=== PATIENT | female | born 1970 | race Caucasian/White ===

== ENCOUNTER → 2019-07-30 | Outpatient (CLI) | payer BC, SELFPAY ==
--- NOTE | 2019-07-30 13:37 | EEG ---
- Electroencephalogram Date of service 07/30/2019 History EEG is being done in this 49 yr F to rule out seizures EEG Description: This is an 18 channel EEG with 10-20 lead placement system. Bipolar montages, and referential montages were reviewed. Photic stimulation and Hyperventilation were performed. The posterior dominant rhythm is 11 HZ synchronous, symmetric, reacting to eye opening and closing. Photo stimulation elicited normal driving response but no abnormal photoparoxysmal response, Hyperventilation did not elicit any abnormal photoparoxysmal response. Sleep was identified. There is no abnormal background slowing noted. There was no epileptiform discharges or electrographic seizures noted during this recording. EKG artefact was noted during the record EEG Interpretation This is a normal awake and asleep EEG. There is no epileptiform discharges or electrographic seizures noted during the record
== END | disposition home or self-care (01) ==
LOC: PSN 08:54
PROVIDERS: Family Provider Internal Medicine; PCP Internal Medicine; Referring Provider Internal Medicine; Visit Provider Internal Medicine
DX: R56.9 Unspecified convulsions (principal)
CPT/HCPCS: 95819

== ENCOUNTER 2023-01-21 21:43 | Emergency (ER) | payer OTHER, SELFPAY ==
[2023-01-21 21:43] VITALS: BP 185/91; PULSE 66; RESP 18; TEMP 35.7; O2SAT 100; BMI 39.2
--- NOTE | 2023-01-21 21:55 | EKG12_ITS ---
Test Reason : CP Blood Pressure : / mmHG Vent. Rate : 073 BPM Atrial Rate : 073 BPM P-R Int : 116 ms QRS Dur : 078 ms QT Int : 402 ms P-R-T Axes : 000 000 -03 degrees QTc Int : 442 ms Normal sinus rhythm with sinus arrhythmia Nonspecific ST abnormality Abnormal ECG Confirmed by MATTHEW PORTER, AMINA ([id number]), school photograph editor JIM SHOEMAKER ([id number]) on 01/24/2023 12:29:54 P M Referred By: LONA Confirmed By:JERSON CASTRO MD
[2023-01-21 21:59] VITALS: PULSE 63; RESP 16
--- NOTE | 2023-01-21 22:01 | RAD_ITS ---
INDICATION: chest pain EXAMINATION/TECHNIQUE: X-RAY - XR Chest 1 View COMPARISON: No previous relevant examinations available for comparison.. FINDINGS: LIFE-SUPPORT AND LINES: 1. None HEART AND VESSELS: The cardiac silhouette, pulmonary vasculature have normal appearance. No evidence of congestive failure. LUNGS AND PLEURAL SPACES: Lungs are clear. No focal infiltrate, consolidation or effusions. No evidence of pneumothorax. No pulmonary mass is noted. MEDIASTINUM AND HILAR REGIONS: No masses adenopathy noted. No areas of calcification. Visualized upper airway is normal in position. BONY ELEMENTS: No acute bony changes noted. RAD/Chest 1 View (Portable) IMPRESSION: 1. No evidence of acute cardiopulmonary process Electronically Signed: Juan Pablo Kothari MD at 22:23 EDT ,
[2023-01-21 22:04] LABS: Absolute Lymphocyte Count 2.52 X10^3/uL (0.83-4.51); Absolute Neutrophil Count 4.3 X10^3/uL (2.0-7.7); Basophil# 0.08 X10^3/uL; Eosinophil# 0.21 X10^3/uL; Eosinophils% 2.7 % (0-5); Hematocrit 45.3 % (37-47); Hemoglobin 14.9 g/dL (12.0-15.0); Lymphocyte # 2.52 X10^3/ul (0.83-4.51); Lymphocyte % 32.5 % (19-41); Mean Corp Hgb Conc 32.9 g/dL (32-36); Mean Corpuscular Hgb 29.8 pg (27.0-32.0); Mean Corpuscular Volume 90.6 fL (81-99); Mean Platelet Vol. 9.6 fl (6.2-12.0); Monocyte# 0.58 X10^3/uL; Monocyte% 7.5 % (0-10); NRBC Flagged by Analyzer 0 % (0-5); Neutrophil # 4.33 X10^3/uL (2.7-7.7); Neutrophil % 55.9 % (47-70); Platelet Count 236 K/mm3 (150-450); RBC Distribution Width CV 13.1 % (11.6-14.6); RBC Distribution Width SD 43.1 fl (35.1-43.9); White Blood Count 7.8 K/mm3 (4.4-11.0)
--- NOTE | 2023-01-21 22:18 | ED.VIS.CHEST ---
HPI History of Present Illness Chief Complaint: Chest Pain Narrative Narrative: 52-year-old female presenting with left-sided chest pain. Patient has radiated to the scapula. Patient states the pain started when she woke up at 4:30 AM this morning. Is been present all day. She went to work and was able to finish her shift. She came home and after dinner she laid down and noted that her chest pain got worse. She has not any shortness of breath. No fevers, chills, coughing. No sharp pleuritic pain. No pain with deep inspiration. She does note its worse when she leans forward to pick stuff up. Denies cardiac history. She states she does have a history of epilepsy. She has not had any breakthrough seizures. Patient denies trying Tylenol or ibuprofen prior to coming. She states she does not taking anything for pain. No weakness, lightheadedness. PFSH PFSH Home Medications oxycodone-acetaminophen 5 mg-325 mg tablet 1 - 2 tab PO Q6H PRN PRN Pain ##20 01/08/17 [Rx Last Taken Unknown] tamsulosin 0.4 mg capsule 0.4 mg PO DAILY 5 days 01/08/17 [Rx Last Taken Unknown] Allergy/AdvReac Type Severity Reaction Status Date / Time No Known Allergies Allergy Verified 01/21/23 21:45 Social History Smoking Status: Never smoker ROS ROS ED Constitutional Constitutional ED: Denies chills, fever(s) or sweats Eyes Eyes: Denies blurry vision or change in vision ENT ENT ED: Denies ear pain or sore throat Cardiovascular Cardiovascular: Reports chest pain; Denies palpitations or racing heartbeat Respiratory/Chest Respiratory/Chest: Denies cough, dyspnea or sputum Gastrointestinal Gastrointestinal: Denies abdominal pain, constipation, diarrhea, nausea or vomiting Genitourinary Genitourinary ED: Denies dysuria, hematuria or urinary frequency Musculoskeletal Musculoskeletal: Denies arthralgias, myalgias or neck pain Integumentary Denies abscess, Abrasions or rash Neurologic Neurologic: Denies headache(s), paresthesias or weakness Psychiatric Psychiatric: Denies anxiety, depression, suicidal ideation or suicidal thoughts Endocrine Endocrinology: Denies polydipsia or polyuria EXAM Physical Exam Const Vital Signs: 01/21/23 21:43 01/21/23 21:59 01/21/23 21:59 Temperature 96.2 F L Temperature Source Temporal Pulse Rate 66 63 Respiratory Rate 18 16 Blood Pressure 185/91 H Blood Pressure Mean 122 Pulse Ox 100 Oxygen Delivery Method Room Air Room Air Heart Score History: Slightly/Non-Suspicious ECG: Normal Age: >45 - <65 years Risk Factors: 1 or 2 Risk Factors Score: 2 MDM MDM MDM Narrative Medical decision making narrative: 52-year-old female presenting with chest pain. She declines any analgesia. Differential includes but is not limited to ACS, PE, pneumonia, pneumothorax, muscle strain, costochondritis. I have a low suspicion for ACS but I did obtain an EKG which on my interpretation shows a normal sinus rhythm with a ventricular rate of 73 bpm without sign of ischemic change or dysrhythmia. Chest x-ray was obtained and does not show any evidence of pneumonia, pneumothorax. There is no other acute process on my interpretation. Patient PERC negative so PE unlikely. High-sensitivity troponin is 7 after chest pain all day long. I do not believe she needs a delta troponin. Patient's work-up ultimately negative. Counseled on findings. She is given return precautions. I recommend she follow-up with her PCP on an outpatient basis. Impression: 1. Chest Lab Data Labs: Laboratory Results - last 24 hr 01/21/23 01/21/23 22:00 22:00 WBC 7.8 RBC 5.00 Hgb 14.9 Hct 45.3 MCV 90.6 MCH 29.8 MCHC 32.9 RDW Std Deviation 43.1 RDW Coeff of Barbara 13.1 Plt Count 236 MPV 9.6 Immature Gran % (Auto) 0.400 Neut % (Auto) 55.9 Lymph % (Auto) 32.5 [place] % (Auto) 7.5 Eos % (Auto) 2.7 Baso % (Auto) 1.0 Absolute Neuts (auto) 4.3 Absolute Lymphs (auto) 2.52 Nucleated RBC % 0 Sodium 143 Potassium 4.0 Chloride 111 H Carbon Dioxide 26.0 Anion Gap 6 BUN 16 Creatinine 0.92 Estim Creat Clear Calc 52.55 Est GFR (MDRD) Af Amer 83 Est GFR (MDRD) Non-Af 68 BUN/Creatinine Ratio 17.4 Glucose 100 Calcium 10.1 Troponin I High Sens 7 Radiography Diagnostic Testing: Clinical Impression(s) from Imaging Studies Chest X-Ray 01/21/23 22:01 IMPRESSION: 1. No evidence of acute cardiopulmonary process Electronically Signed: Juan Pablo Kothari MD at 22:23 EDT , Discharge Plan Triage Chief Complaint: Chest Pain ED Provider: Rogers Lozoya Dx/Rx/DC Orders Instructions: ED Chest Pain, Noncardiac Prescriptions: No Action oxycodone-acetaminophen 1 TABLET tablet 1 - 2 tab PO Q6H PRN PRN (Reason: Pain) Qty: 20 0RF tamsulosin 0.4 MG capsule 0.4 mg PO DAILY 5 Days 0RF Primary Care Provider: Lena Crabtree Referrals: Lena Crabtree MD [Primary Care Provider] - Disposition Disposition: Home, Self Care
[2023-01-21 22:20] LABS: Anion Gap 6 (5-15); BUN 16 mg/dL (7-18); BUN/Creat Ratio 17.4 RATIO (10-20); Calcium,Total 10.1 mg/dL (8.5-10.1); Chloride 111 mmol/L (98-107); Creatinine, Serum 0.92 mg/dL (0.55-1.02); EST Glomerular Filtration Rate 68 mL/min (>60); Est Glom Filt Rate - Afr Amer 83 mL/min (>60); Estimated Creatinine Clearance 52.55 ml/min; Glucose 100 mg/dL (74-106); Sodium Level 143 mmol/L (136-145); Troponin-I HS 7 pg/mL (3.0-54.0)
[2023-01-21 23:25] VITALS: BP 170/90; PULSE 71; RESP 16; O2SAT 96
== END 2023-01-21 23:26 | disposition home or self-care (01) ==
PROVIDERS: Emergency Provider Student in an Organized Health Care Education/Training Program; PCP Internal Medicine; Visit Provider Student in an Organized Health Care Education/Training Program
DX: R07.9 Chest pain, unspecified (principal)
CPT/HCPCS: 71045; 80048; 84484; 85025; 93005; 99284

== ENCOUNTER 2023-10-23 17:03 | Emergency (ER) | payer OTHER, SELFPAY ==
[2023-10-23 17:03] VITALS: BP 181/102; PULSE 63; RESP 17; TEMP 36.7; O2SAT 98; BMI 34.9
[2023-10-23 17:46] LABS: Mucous, Urine 0 SEEN /hpf (<or=2+)
[2023-10-23 17:51] LABS: Color, Urine Yellow (Yellow); Glucose, Dipstick Normal (Normal); Ketone-Dipstick 50 mg/dl (Negative); Leukocyte Esterase-Dipstick 25 /ul (Negative); Nitrite-Dipstick Negative (Negative); Occult Blood-Urine 150 /ul (Negative); Protein-Dipstick 15 mg/dl (Negative); Urine Bilirubin Dipstick Negative (Negative); Urine Clarity Sl. Cloudy (Clear); Urine Urobilinogen Normal (Normal)
[2023-10-23 18:05] LABS: White Blood Cells 5-10 SEEN /hpf (0-5)
[2023-10-23 18:06] LABS: Amorphous Sediment 1+ PHOS; Bacteria RARE /hpf (None Seen); Red Blood Cells-Urine 25-50 SEEN /hpf (0-5); Squamous Epithelial Cells - UA 0-5 SEEN /hpf (5-10)
--- NOTE | 2023-10-23 19:43 | CT_ITS ---
INDICATION: R flank pain EXAMINATION: CT ABDOMEN AND PELVIS WITHOUT CONTRAST - CT Abdomen And Pelvis W/O Contrast Injection TECHNIQUE: Helically acquired images were obtained of the abdomen and pelvis without oral or IV contrast. A radiation dose optimization technique was used for this scan. IV Contrast dosage and agent: None. Oral contrast: None. COMPARISON: 01/08/2017 FINDINGS: LOWER CHEST: Lung bases are clear. No cardiomegaly or pericardial effusion. LIVER: Homogeneous. No focal mass. GALLBLADDER AND BILIARY TREE: Cholecystectomy. No intra- or extrahepatic biliary ductal dilation. PANCREAS: No focal cystic or solid mass. SPLEEN: Normal size without focal cystic or solid mass. ADRENAL GLANDS: No nodules. KIDNEYS AND URETERS: Nonobstructing bilateral nephrolithiasis. Right hydroureteronephrosis with right perinephric stranding. No right ureteral calculus. 5 mm calculus in the bladder lumen near the right ureteral orifice. PERITONEUM: No ascites or free air. BOWEL: Normal appendix. No stomach or bowel distension. No focal inflammatory change. LYMPH NODES: No enlarged mesenteric or retroperitoneal lymph nodes. VESSELS: Aorta is non-dilated. URINARY BLADDER: 5 mm calculus in the bladder lumen near the right ureteral orifice. REPRODUCTIVE ORGANS: No pelvic masses. ABDOMINAL WALL: No discrete abdominal or pelvic wall hernia. BONES: No acute or aggressive abnormality. CT/Abdomen/Pelvis without Cont IMPRESSION: Findings consistent with recent passage of 5 mm right ureteral calculus into the bladder lumen. Electronically Signed: Mook Callejas MD at 20:43 EST ,
[2023-10-23] MEDS: 0.9% Normal Saline (1000mL) 1,000 ML 999 ML IV (19:45)
--- NOTE | 2023-10-23 19:45 | EX.ED.DYSGE1 ---
HPI <DIANE Hanson - Last Filed: 10/23/23 21:06> History of Present Illness Chief Complaint: Abd Pain Narrative Narrative: Patient presenting today with concerns that she has a kidney stone. She reports that she developed right-sided flank pain that radiates into her right lower quadrant of her abdomen that started this morning. She reports that the pain is waxing and waning and is sharp. She has a history of kidney stones and thinks that this feels similar. She has had increased urinary frequency. She reports that when the pain becomes severe she becomes nauseous and has had a few episodes of vomiting. She has also noticed a few episodes of loose stools today. Previous abdominal surgeries include section, cholecystectomy, and hysterectomy. She denies any fever and chills. PFSH <DIANE Hanson - Last Filed: 10/23/23 21:06> PFSH Home Medications zonisamide 100 mg capsule 400 mg PO QHS 10/23/23 [History Last Taken Unknown] Allergy/AdvReac Type Severity Reaction Status Date / Time acetaminophen [From Tylenol] Allergy Other Verified 10/23/23 17:03 Social History Smoking Status: Current some day smoker tobacco type: e-cigarettes ROS <DIANE Hanson - Last Filed: 10/23/23 21:06> ROS ED Constitutional Constitutional ED: Denies chills or fever(s) Cardiovascular Cardiovascular: Denies chest pain Respiratory/Chest Respiratory/Chest: Denies cough or dyspnea Gastrointestinal Gastrointestinal: Reports abdominal pain; Denies nausea or vomiting Genitourinary Genitourinary ED: Reports urinary frequency and urinary urgency; Denies dysuria or hematuria Musculoskeletal Musculoskeletal: Reports back pain Integumentary Denies rash Neurologic Neurologic: Denies paresthesias or weakness EXAM <DIANE Hanson - Last Filed: 10/23/23 21:06> Physical Exam Const Vital Signs: 10/23/23 17:03 10/23/23 19:51 10/23/23 21:00 Temperature 98.1 F Temperature Source Temporal Pulse Rate 63 58 L 59 L Respiratory Rate 17 20 H 18 Blood Pressure 181/102 H 185/104 H 161/88 H Blood Pressure Mean 128 131 112 Pulse Ox 98 98 96 Oxygen Delivery Method Room Air Room Air Room Air 10/23/23 21:15 Temperature Temperature Source Pulse Rate 61 Respiratory Rate 15 Blood Pressure Blood Pressure Mean Pulse Ox 98 Oxygen Delivery Method Positive well nourished, well developed and no apparent distress General Appearance ED: well developed HEENT Reports normocephalic and head/scalp atraumatic Mouth ED: Yes moist mucous membranes normal Eyes PERRL and EOMs intact bilaterally Neck full ROM and supple Chest Wall inspection of chest normal Resp normal respiratory effort and clear to auscultation bilaterally Cardio regular rate and regular rhythm GI soft to palpation, non-tender, non-distended and no masses Back/Spine normal ROM and normal to inspection General Back: CVA tenderness right Extremity normal to inspection and full ROM Neuro oriented x3, CN's II-XII intact bilaterally, moves all extremities, no focal motor deficits and no sensory deficits noted Sensorium / Orientation: awake and alert Psych mental status grossly normal and thought process normal Skin no rashes or lesions noted and no wounds <Dr. Brandt Anthony DO - Last Filed: 10/23/23 22:45> Physical Exam Const Vital Signs: 10/23/23 17:03 10/23/23 19:51 10/23/23 21:00 Temperature 98.1 F Temperature Source Temporal Pulse Rate 63 58 L 59 L Respiratory Rate 17 20 H 18 Blood Pressure 181/102 H 185/104 H 161/88 H Blood Pressure Mean 128 131 112 Pulse Ox 98 98 96 Oxygen Delivery Method Room Air Room Air Room Air 10/23/23 21:15 Temperature Temperature Source Pulse Rate 61 Respiratory Rate 15 Blood Pressure Blood Pressure Mean Pulse Ox 98 Oxygen Delivery Method [facility] <DIANE Hanson - Last Filed: 10/23/23 21:06> [facility] Narrative Medical decision making narrative: Patient presenting with right-sided flank pain that started today. She is concerned that she could have a kidney stone as her symptoms are similar to her previous stone. She has right CVA tenderness, no abdominal tenderness on exam. UA obtained in triage and does show red blood cells. Labs will be obtained to rule out leukocytosis, anemia, electrolyte abnormality, YOLI, and UTI. CT of the abdomen and pelvis will be obtained to rule out kidney stone, appendicitis, diverticulitis, and other abdominal etiology. Patient will be given IV fluids, morphine, Toradol, and Zofran. CT scan shows a 5 mm stone in the bladder. Bilateral nonobstructing stones in the kidneys. On reexamination she reports improvement of her symptoms. Blood pressure is improved at 161/88. She will be discharged home in stable condition and is comfortable with plan. She is to follow-up with her PCP. Lab Data Attestation: I reviewed the patient's lab results. Lab results narrative: WBC 11.1, creatinine 1.17 Labs: Laboratory Results - last 24 hr 10/23/23 10/23/23 17:37 19:37 WBC 11.1 H RBC 5.00 Hgb 15.1 H Hct 43.8 MCV 87.6 MCH 30.2 MCHC 34.5 RDW Std Deviation 41.0 RDW Coeff of Barbara 12.7 Plt Count 229 MPV 9.9 Immature Gran % (Auto) 0.500 Neut % (Auto) 93.0 H Lymph % (Auto) 4.9 L [place] % (Auto) 1.4 Eos % (Auto) 0.0 Baso % (Auto) 0.2 Absolute Neuts (auto) 10.3 H Absolute Lymphs (auto) 0.54 L Nucleated RBC % 0 Differential Comment SCANNED Sodium 142 Potassium 3.6 Chloride 114 H Carbon Dioxide 23.0 Anion Gap 5 BUN 14 Creatinine 1.17 H Estim Creat Clear Calc 40.86 Est GFR (MDRD) Af Amer 63 Est GFR (MDRD) Non-Af 52 L BUN/Creatinine Ratio 12.0 Glucose 145 H Calcium 10.0 Urine Color Yellow Urine Clarity Sl. Cloudy Urine pH 7.0 Ur Specific [place] 1.010 Urine Protein 15 H Urine Glucose (UA) Normal Urine Ketones 50 H Urine Occult Blood 150 H Urine Nitrite Negative Urine Bilirubin Negative Urine Urobilinogen Normal Ur Leukocyte Esterase 25 H Urine RBC 25-50 SEEN Urine WBC 5-10 SEEN Ur Squamous Epith Cells 0-5 SEEN Amorphous Sediment 1+ PHOS Urine Bacteria RARE Urine Mucus 0 SEEN Radiography Diagnostic Testing: Clinical Impression(s) from Imaging Studies Abdomen/Pelvis CT 10/23/23 19:43 IMPRESSION: Findings consistent with recent passage of 5 mm right ureteral calculus into the bladder lumen. Electronically Signed: Mook Callejas MD at 20:43 EST , <Dr. Brandt Anthony, DO - Last Filed: 10/23/23 22:45> [facility] Lab Data Labs: Laboratory Results - last 24 hr 10/23/23 10/23/23 17:37 19:37 WBC 11.1 H RBC 5.00 Hgb 15.1 H Hct 43.8 MCV 87.6 MCH 30.2 MCHC 34.5 RDW Std Deviation 41.0 RDW Coeff of Barbara 12.7 Plt Count 229 MPV 9.9 Immature Gran % (Auto) 0.500 Neut % (Auto) 93.0 H Lymph % (Auto) 4.9 L [place] % (Auto) 1.4 Eos % (Auto) 0.0 Baso % (Auto) 0.2 Absolute Neuts (auto) 10.3 H Absolute Lymphs (auto) 0.54 L Nucleated RBC % 0 Differential Comment SCANNED Sodium 142 Potassium 3.6 Chloride 114 H Carbon Dioxide 23.0 Anion Gap 5 BUN 14 Creatinine 1.17 H Estim Creat Clear Calc 40.86 Est GFR (MDRD) Af Amer 63 Est GFR (MDRD) Non-Af 52 L BUN/Creatinine Ratio 12.0 Glucose 145 H Calcium 10.0 Urine Color Yellow Urine Clarity Sl. Cloudy Urine pH 7.0 Ur Specific [place] 1.010 Urine Protein 15 H Urine Glucose (UA) Normal Urine Ketones 50 H Urine Occult Blood 150 H Urine Nitrite Negative Urine Bilirubin Negative Urine Urobilinogen Normal Ur Leukocyte Esterase 25 H Urine RBC 25-50 SEEN Urine WBC 5-10 SEEN Ur Squamous Epith Cells 0-5 SEEN Amorphous Sediment 1+ PHOS Urine Bacteria RARE Urine Mucus 0 SEEN Radiography Diagnostic Testing: Clinical Impression(s) from Imaging Studies Abdomen/Pelvis CT 10/23/23 19:43 IMPRESSION: Findings consistent with recent passage of 5 mm right ureteral calculus into the bladder lumen. Electronically Signed: Mook Callejas MD at 20:43 EST , Treatment and Re-Evaluation :: I have personally performed a face to face assessment of the patient and have reviewed the SANTIAGO Note. I performed a substantive portion of the visit including all aspects of the following. My cornejo findings include: History: Patient presents with right flank pain that began yesterday. Patient states it gradually got worse today. Patient states the pain is cramping. Patient states it is localized to the right flank. Patient states it feels similar to prior kidney stones. Patient admits to some nausea, vomiting, and diarrhea. Patient denies any hematemesis or coffee-ground emesis. Patient denies any melena or hematochezia. Patient denies any dysuria, frequency, or hematuria. Patient admits to some subjective chills but denies any fevers. Exam: Vital signs are stable except for an elevated blood pressure of 181/102. Patient is afebrile. Patient is in no acute distress. Oral mucosa is pink and moist. Neck is supple. Trachea is midline. There is no JVD. Heart was regular rate and rhythm. Lungs are clear and equal bilaterally. Abdomen is soft. There is some mild tenderness over the right upper and lower abdomen. There is no rebound or guarding noted. There is some right CVA tenderness. Cranial nerves II through XII are intact. There are no focal motor or sensory deficits noted. Medical Decision Making: Differential diagnosis includes ureteral calculus, pyelonephritis, and urinary tract infection. CBC will be obtained to assess for leukocytosis and anemia. Basic metabolic profile will be obtained to assess for electrolyte abnormality and renal function. Urinalysis will be obtained to assess for urinary tract infection. CT scan of the abdomen pelvis will be obtained to assess for ureteral calculus. Patient was given IV fluids, morphine, Zofran, and Toradol. CBC was reviewed. There is a mild leukocytosis of 11.1. The remainder is essentially within normal limits. Basic metabolic profile was reviewed. Creatinine was slightly elevated at 1.17. Glucose was slightly elevated at 145. Chloride was slightly elevated at 114. The remainder is within normal limits. Urinalysis was reviewed. Occult blood was 150 with 25-50 red blood cells. There is a leukocyte esterase of 25 with 5-10 white blood cells. There is no bacteria noted. CT scan of the abdomen and pelvis was reviewed. There is a 5 mm calculus in the bladder from a recently passed right ureteral calculus. There is no other acute process noted. This was interpreted by the radiologist and was also independently reviewed by myself. Patient was advised of her findings. Patient was instructed to drink plenty of fluids. Patient is feeling better on reevaluation. Patient was instructed to take Tylenol or ibuprofen as needed for pain. Patient was instructed to follow-up with her primary care physician in 5 to 7 days. Patient and spouse understood and were agreeable with plan. All questions were answered. Discharge Plan Triage Chief Complaint: Abd Pain ED Midlevel Provider: Hanna Mosqueda ED Provider: Brandt Anthony Dx/Rx/DC Orders Clinical Impression: Kidney stone on right side Instructions: ED Kidney Stone, Passed Prescriptions: No Action zonisamide 100 mg capsule 400 mg PO QHS Primary Care Provider: Lena Crabtree Referrals: Lena Crabtree MD [Primary Care Provider] - 3-5 Days if not improving Activity Restrictions/Additional Instructions: Follow-up with your PCP, return for any worsening of your symptoms. Disposition Disposition: Home, Self Care Discharge Date/Time: 10/23/23 21:15
[2023-10-23] MEDS: Ondansetron 4 MG/2 ML Vial IV (19:46)
[2023-10-23] MEDS: Ketorolac 15 MG/ML Vial IV (19:46)
[2023-10-23] MEDS: Morphine 4 MG/ML Syringe IV (19:47)
[2023-10-23 19:49] LABS: Absolute Lymphocyte Count 0.54 X10^3/uL (0.83-4.51); Absolute Neutrophil Count 10.3 X10^3/uL (2.0-7.7); Basophil# 0.02 X10^3/uL; Basophil% 0.2 % (0-1); Hematocrit 43.8 % (37-47); Hemoglobin 15.1 g/dL (12.0-15.0); Lymphocyte # 0.54 X10^3/ul (0.83-4.51); Lymphocyte % 4.9 % (19-41); Mean Corp Hgb Conc 34.5 g/dL (32-36); Mean Corpuscular Hgb 30.2 pg (27.0-32.0); Mean Corpuscular Volume 87.6 fL (81-99); Mean Platelet Vol. 9.9 fl (6.2-12.0); Monocyte# 0.16 X10^3/uL; Monocyte% 1.4 % (0-10); NRBC Flagged by Analyzer 0 % (0-5); Neutrophil # 10.32 X10^3/uL (2.7-7.7); POSITIVE DIFFERENTIAL YES; Platelet Count 229 K/mm3 (150-450); RBC Distribution Width CV 12.7 % (11.6-14.6); White Blood Count 11.1 K/mm3 (4.4-11.0)
[2023-10-23 19:50] LABS: Differential Indicated SCAN CRITERIA MET
[2023-10-23 19:51] VITALS: BP 185/104; PULSE 58; RESP 20; O2SAT 98
[2023-10-23 20:00] LABS: Differential Comment SCANNED
[2023-10-23 20:12] LABS: Anion Gap 5 (5-15); BUN 14 mg/dL (7-18); Chloride 114 mmol/L (98-107); Creatinine, Serum 1.17 mg/dL (0.55-1.02); EST Glomerular Filtration Rate 52 mL/min (>60); Est Glom Filt Rate - Afr Amer 63 mL/min (>60); Estimated Creatinine Clearance 40.86 ml/min; Glucose 145 mg/dL (74-106); Potassium 3.6 mmol/L (3.5-5.1); Sodium Level 142 mmol/L (136-145)
[2023-10-23 21:00] VITALS: BP 161/88; PULSE 59; RESP 18; O2SAT 96
[2023-10-23 21:15] VITALS: PULSE 61; RESP 15; O2SAT 98
== END 2023-10-23 21:15 | disposition home or self-care (01) ==
PROVIDERS: Physician Assistant; Emergency Provider Emergency Medicine; PCP Internal Medicine; Referring Provider Emergency Medicine; Visit Provider Emergency Medicine
DX: N20.0 Calculus of kidney (principal); F17.290 Nicotine dependence, other tobacco product, uncomplicated
CPT/HCPCS: 74176; 80048; 81001; 85025; 96374; 96375; 99284; J7030; A4216; J2405